=== PATIENT | male | born 1995 | race Caucasian/White ===

== ENCOUNTER 2020-01-18 14:09 | Inpatient (IN) ==
[2020-01-18] MEDS ORDERED: SODIUM CHLORIDE 0.9% 1000ML 2,000 ML IV ONE (16:00)
[2020-01-18] MEDS ORDERED: PROCHLORPERAZINE 2 ML IV ONE (16:00)
[2020-01-18] MEDS ORDERED: DiphenhydrAMINE HCL 50 MG/ML VIAL IV STA (16:00)
[2020-01-18] MEDS ORDERED: ACETAMINOPHEN 1,000 MG/100 ML VIAL IV STA (16:00)
[2020-01-18] MEDS ORDERED: FAMOTIDINE 20MG IV PUSH 20 MG/5 ML SYR IV STA (16:00)
--- NOTE | 2020-01-18 16:34 | XRay Report ---
XR chest 1V portable CLINICAL HISTORY: abd pain vomiting pain COMPARISON STUDY: No previous studies for comparison. FINDINGS: The bones soft tissues and hemidiaphragms are normal. The cardiomediastinal silhouette is n ormal. The lungs are clear. The pulmonary vasculature is normal. IMPRESSION: Negative chest. ACT 112: Negative or not required by law. The above report was generated using voice recognition software. It may contain grammatical, syntax or spelling errors. Electronically signed by: Hussein Pedersen M.D. 01/18/2020 4:33 PM
[2020-01-18 16:42] LABS: Hematocrit (blood only) 52.3 % (42-52); Hemoglobin 18.9 g/dL (14.0-18.0); Mean Corpuscular Hemoglobin 35.9 pg (25-34); Mean Corpuscular Hgb Conc 36.1 g/dL (32-36); Mean Corpuscular Volume 99.2 fL (80-100); Mean Platelet Volume 11.8 fL (7.4-10.4); Platelet Count 168 K/uL (130-400); RDW Coefficient of Variation 13.5 % (11.5-14.5); RDW Standard Deviation 48.9 fL (36.4-46.3); Red Blood Count 5.27 M/uL (4.7-6.1); White Blood Count 29.49 K/uL (4.8-10.8)
[2020-01-18 17:19] LABS: Alanine Aminotransferase 152 U/L (12-78); Albumin Globulin Ratio 0.6 (0.9-2); Albumin Level 2.9 gm/dl (3.4-5.0); Alkaline Phosphatase 205 U/L (45-117); BUN Creatinine Ratio 11.3 (10-20); Bilirubin,Total 1.1 mg/dl (0.2-1); Blood Urea Nitrogen 28 mg/dl (7-18); Carbon Dioxide 17 mmol/L (21-32); Chloride 89 mmol/L (98-107); Est GFR (African American) 40.5; Est GFR (Non-African American) 34.9; Globulin 4.5 gm/dl (2.5-4.0); Glucose 187 mg/dl (70-99); Lipase 9409 U/L (73-393); Phosphorus 3.6 mg/dl (2.5-4.9); Sodium 127 mmol/L (136-145); Total Protein 7.4 gm/dl (6.4-8.2)
[2020-01-18 17:20] LABS: Aspartate Aminotransferase 235 U/L (15-37); Bilirubin Direct 0.5 mg/dl (0-0.2); Magnesium 1.4 mg/dl (1.8-2.4); Potassium 4.1 mmol/L (3.5-5.1)
[2020-01-18 17:24] LABS: Calcium 5.6 mg/dl (8.5-10.1)
[2020-01-18] MEDS ORDERED: MULTI-VITAMIN INFUSION 10 ML, THIAMINE HCL 100 MG, FOLIC ACID 1 MG in SODIUM CHLORIDE 0... IV ONE (17:32)
[2020-01-18] MEDS ORDERED: CALCIUM GLUCONATE 10% 1,000 MG in SODIUM CHLORIDE 0.9% 50 ML IV STA (17:32)
[2020-01-18] MEDS: MAGNESIUM SULFATE / D5W 1 GM/100 ML BAG IV SCH ×2 (17:39→18:35)
[2020-01-18] MEDS ORDERED: DIAZEPAM 5 MG/ML INJ 10ML VIAL IV STA (17:53)
[2020-01-18 18:04] LABS: Basophils # (auto) 0.01 K/uL (0-0.2); Immature Granulocytes # (auto) 0.42 K/uL (0.00-0.02); Immature Granulocytes % (auto) 1.4 %; Lymphocytes # (auto) 1.52 K/uL (1.2-3.4); Lymphocytes % (auto) 5.2 %; Monocytes # (auto) 0.93 K/uL (0.11-0.59); Monocytes % (auto) 3.2 %; Neutrophils # (auto) 26.61 K/uL (1.4-6.5); Neutrophils % (auto) 90.2 %
--- NOTE | 2020-01-18 18:59 | Emergency Department Note ---
Impression & Plan Acute pancreatitis, Acute renal failure, Metabolic acidosis, Alcohol dependence, Transaminitis, Hypomagnesemia, Hypocalcemia ED Provider Note NAME: CARYN DASILVA AGE: 24 SEX: M ARRIVES VIA: Walk-In INFORMANT: Patient, ED PROVIDER(S): Shekhar Wheeler MD CHIEF COMPLAINT: Abdominal pain, nausea/vomiting. PLAN: Disposition: Admit. MEDICAL DECISION MAKING: The patient is a pleasant 24-year-old gentleman with a past medical history of alcohol dependence, withdrawal and seizures who presents emergency department with nausea and vomiting with abdominal pain for the past several days with blood-tinged emesis throughout today. The patient reports he has stopped his heavy drinking but does drink frequently and likely every day. He is evasive regarding the quantity that he drinks and whether or not he still has withdrawal symptoms but does admit to feeling restless if he does not drink for couple of days. He denies any fevers, cough, congestion, urinary symptoms. He denies any known contact with individuals diagnosed with COVID-19. On arrival the patient is uncomfortable but no acute distress, afebrile with heart rate in the 120s and vital signs otherwise stable. He appears clinically dry. There is no crepitus upon palpation of the neck or chest. He has generalized abdominal tenderness without guarding or rebound. X-ray without evidence of free air or pneumomediastinum. WBC 29K likely related to a component of acute phase reactant and dehydration given the patient's polycythemia with H/H 18.9/52.3. However blood cultures ordered. Platelets within normal limits. Chemistry does demonstrate anion gap metabolic acidosis with anion gap of 21 and bicarb of 17 as well as creatinine of 2.4, glucose 187 with sodium of 127. Magnesium is 1.4 with repletion provided. Calcium 5.6 with repletion provided. LFTs are also elevated with total bilirubin of 1.1 and direct bilirubin of 0.5 with AST and ALT elevated at 235 and 152, respectively approaching alcoholic pattern. Lipase is elevated at 9500. Patient's blood alcohol is 22. LDH 1100. CT ab pelvis was ordered and pending. Upon reevaluation patient did appear improved. Did review the findings with the patient and recommendations for admission. He did wonder if he could go home and then come back. I did stress the importance of being admitted today given his significant lab abnormalities including renal failure with severe pancreatitis. The patient's partner did arrive to the bedside and with his urging the patient was ultimately agreeable with admission. CT of abd/pelvis subsequently shows severe pancreatitis. Case was discussed with Dr. Rosado, [facility] hospitalist, who will evaluate the patient for admission. Triage Nursing notes reviewed and agree them. Prior medical records reviewed Vital Signs: reviewed and remarkable for no significant abnormalities Differential diagnosis: Appendicitis, testicular torsion, infections, diverticulitis, UTI, obstruction, mesenteric ischemia, aortic pathology, inflammatory bowel disease, renal colic, PUD, pancreatitis, biliary pathology, hernia, volvulus, constipation, as well as other pathologies. ER treatment provided: See below. Diagnostics interpreted by me: ECG: Sinus tachcyardia, 119 bpm, normal axis, no ectopy, no overt ST elevation o r depression, QTC 495 and QRS 88. Cardiac Monitoring: An order for continuous cardiac monitoring was placed and demonstrated sinus tachycardia, 122 bpm, no ectopy. Laboratory studies: See below Imaging studies: XR chest 1V portable CLINICAL HISTORY: abd pain vomiting pain COMPARISON STUDY: No previous studies for comparison. FINDINGS: The bones soft tissues and hemidiaphragms are normal. The cardiomediastinal silhouette is normal. The lungs are clear. The pulmonary vasculature is normal. IMPRESSION: Negative chest. -- ABDOMEN AND PELVIS CT WITHOUT CONTRAST CT DOSE: 329.52 mGy.cm HISTORY: Right lower quadrant pain. Nausea. Vomiting. TECHNIQUE: Multiaxial CT images of the abdomen and pelvis were performed without contrast. A dose lowering technique was utilized adhering to the principles of ALARA. COMPARISON STUDY: None. FINDINGS: The lung bases are clear. No pneumoperitoneum. No pneumatosis. No fra ctures within the visualized osseous structures. There are severe hepatic steatosis. The unenhanced spleen, gallbladder, adrenal glands, and kidneys are unremarkable. No renal or ureteral stones. No hydronephrosis. Normal bladder. Small to moderate left-sided hydrocele. No evidence for bowel obstruction. The majority of the pancreas is obscured by the extensive peripancreatic fluid/fat stranding there is fluid tracking within the bilateral anterior pararenal spaces, right greater than left. There is also fluid/fat stranding extending into the central mesentery and omentum. Therefore, these findings likely represent severe acute pancreatitis. Correlation with pancreatic enzymes is recommended. The appendix is not identified with certainty. No definite bowel wall thickening. Submucosal fat within the majority of the colon raise the possibility of a chronic inflammatory process. No evidence for an acute colitis at this time. No retroperitoneal lymphadenopathy. Normal caliber abdominal aor ta. Omentum. IMPRESSION: 1. The majority of the pancreas is obscured by the extensive peripancreatic fluid/fat stranding. There is also fluid/fat stranding extending into the central mesentery and omentum. Therefore, these findings likely represent severe acute pancreatitis. Correlation with pancreatic enzymes is recommended. 2. Severe hepatic steatosis. 3. No definite bowel wall thickening or obstruction. 4. The appendix is not identified with certainty. 5. Small to moderate left-sided hydrocele. Consultation(s): Case was discussed with Dr. Rosado, [facility] hospitalist, who will evaluate the patient for admission. HPI: The patient is a pleasant 24-year-old gentleman with a past medical history of alcohol dependence, withdrawal and seizures who presents emergency department with nausea and vomiting with abdominal pain for the past several days with blood-tinged emesis throughout today. The patient reports he has stopped his heavy drinking but does drink frequently and likely every day. He is evasive regarding the quantity that he drinks and whether or not he still has withdrawal symptoms but does admit to feeling restless if he does not drink for couple of days. He denies any fevers, cough, congestion, urinary symptoms. He denies any known contact with individuals diagnosed with COVID-19. ROS: See above HPI for pertinent positives & negatives. A total of 10 systems reviewed and were otherwise negative. PAST MEDICAL HISTORY:See Below PAST SURGICAL HISTORY:See Below FAMILY HISTORY:See Below SOCIAL HISTORY:See Below HOME MEDICATIONS:See Below ALLERGIES:See Below VITALS:See Below PHYSICAL EXAMINATION: GENERAL: Awake, alert, uncomfortable-appearing, in no distress HENT: Normocephalic, atraumatic. Oropharynx with dry mucous membranes and otherwise unremarkable. EYES: Normal conjunctiva. Sclera non-icteric. NECK: Supple. No nuchal rigidity. FROM. No JVD. No crepitus. RESPIRATORY: Clear to auscultation. CARDIAC: Tachycardic rate, normal rhythm. Extremities warm and well perfused. Pulses equal. ABDOMEN: Soft, non-distended. Generalized abdominal tenderness. No rebound or guarding. No masses. RECTAL: Deferred. MUSCULOSKELETAL: Chest examination reveals no tenderness. The back is symmetrical on inspection without obvious abnormality. There is no CVA tenderness to palpation. No joint edema. LOWER EXTREMITIES: Calves are equal size bilaterally and non-tender. No edema. No discoloration. NEURO: Normal sensorium. No sensory or motor deficits noted. SKIN: No rash or jaundice noted. ED COURSE: Critical Care: I have personally spent greater than 75 minutes of critical care time in the direct management of this patient. This includes bedside care, interpretation of diagnostic studies, and testing, discussion with consultants, patient, and family members, and other required patient management activities. This 75 minutes is in excess of all separately billable procedures. Shekhar Wheeler MD Past Med/Surg History Medical History Alcohol dependence (Acute) Social History Preferred Language: Thai It [employer] Consultant Required: No Beliefs That Will Affect Care: None Current Living Situation: Significant Other Other Information That Helps Us Care for You: No Feels Safe at Home: Yes Safety Concerns: Feels Safe At This Time Smoking Status: Current every day smoker Hx Alcohol Use: Yes Alcohol type: beer and other Hx Substance Use: Yes (alcohol) Last Used Substance: Hours (ago) Allergies Allergies Allergy/AdvReac Type Severity Reaction Status Date / Time lorazepam AdvReac Unknown Agitated Verified 01/18/20 16:29 Home Meds Home Medications Medication Instructions Recorded Confirmed ibuprofen 600 mg PO Q6H PRN 01/18/20 01/18/20 Results & Data (ED) Vital Signs Vital Signs - 24 hr 01/18/20 13:34 01/18/20 14:13 01/18/20 16:43 Temperature 36.8 C Temperature Source Oral Pulse Rate 118 H 96 H 115 H Pulse Rate [Right Finger] Pulse Rate from SpO2 Sensor 117 H Respiratory Rate 27 H 17 24 Blood Pressure 142/45 H 120/64 Blood Pressure [Right Arm] Blood Pressure Mean 73 82 Blood Pressure Mean [Right Arm] Pulse Oximetry 100 97 Oxygen Delivery Method Room Air Sepsis Recent Fever Within 48 Hours No Sepsis New/Unexplained Change in Mental Status No Sepsis Action Taken by Nursing No Action Required 01/18/20 16:44 01/18/20 16:45 01/18/20 17:00 Temperature Temperature Source Pulse Rate 115 H 109 H 112 H Pulse Rate [Right Finger] Pulse Rate from SpO2 Sensor 115 H 109 H 111 H Respiratory Rate 26 H 28 H 29 H Blood Pressure 138/83 126/89 Blood Pressure [Right Arm] Blood Pressure Mean 99 110 Blood Pressure Mean [Right Arm] Pulse Oximetry 100 97 99 Oxygen Delivery Method Room Air Sepsis Recent Fever Within 48 Hours Sepsis New/Unexplained Change in Mental Status Sepsis Action Taken by Nursing 01/18/20 17:30 01/18/20 17:38 01/18/20 18:00 Temperature Temperature Source Pulse Rate 118 H 116 H 124 H Pulse Rate [Right Finger] Pulse Rate from SpO2 Sensor 117 H Respiratory Rate 24 18 31 H Blood Pressure 147/78 H 135/82 Blood Pressure [Right Arm] Blood Pressure Mean 105 101 Blood Pressure Mean [Right Arm] Pulse Oximetry 100 Oxygen Delivery Method Sepsis Recent Fever Within 48 Hours Sepsis New/Unexplained Change in Mental Status Sepsis Action Taken by Nursing 01/18/20 18:30 01/18/20 18:35 01/18/20 19:25 Temperature Temperature Source Pulse Rate 115 H 122 H Pulse Rate [Right Finger] 117 H Pulse Rate from SpO2 Sensor Respiratory Rate 21 19 19 Blood Pressure 131/78 Blood Pressure [Right Arm] 126/66 Blood Pressure Mean 94 Blood Pressure Mean [Right Arm] 86 Pulse Oximetry 100 Oxygen Delivery Method Room Air Sepsis Recent Fever Within 48 Hours Sepsis New/Unexplained Change in Mental Status Sepsis Action Taken by Nursing 01/18/20 21:08 Temperature Temperature Source Pulse Rate Pulse Rate [Right Finger] 112 H Pulse Rate from SpO2 Sensor Respiratory Rate 19 Blood Pressure Blood Pressure [Right Arm] Blood Pressure Mean Blood Pressure Mean [Right Arm] Pulse Oximetry 98 Oxygen Delivery Method Sepsis Recent Fever Within 48 Hours Sepsis New/Unexplained Change in Mental Status Sepsis Action Taken by Nursing Laboratory Data Attestation: I reviewed the patient's lab results. Result diagrams: 01/19/20 00:50 01/18/20 16:13 Lab Results 01/18/20 01/18/20 01/18/20 Range/Units 16:13 16:13 16:13 WBC 29.49 H (4.8-10.8) K/uL RBC 5.27 (4.7-6.1) M/uL Hgb 18.9 H (14.0-18.0) g/dL Hct 52.3 H (42-52) % MCV 99.2 (80-100) fL MCH 35.9 H (25-34) pg MCHC 36.1 H (32-36) g/dL RDW Std Deviation 48.9 H (36.4-46.3) fL RDW Coeff of Paty 13.5 (11.5-14.5) % Plt Count 168 (130-400) K/uL MPV 11.8 H (7.4-10.4) fL Immature Gran % (Auto) 1.4 % Neut % (Auto) 90.2 % Lymph % (Auto) 5.2 % Bee % (Auto) 3.2 % Eos % (Auto) 0.0 % Baso % (Auto) 0.0 % Neut # (Auto) 26.61 H (1.4-6.5) K/uL Lymph # (Auto) 1.52 (1.2-3.4) K/uL Bee # (Auto) 0.93 H (0.11-0.59) K/uL Eos # (Auto) 0.00 (0-0.5) K/uL Baso # (Auto) 0.01 (0-0.2) K/uL Immature Gran # (Auto) 0.42 H (0.00-0.02) K/uL Sodium 127 L (136-145) mmol/L Potassium 4.1 (3.5-5.1) mmol/L Chloride 89 L (98-107) mmol/L Carbon Dioxide 17 L (21-32) mmol/L Anion Gap 21.0 H (3-11) BUN 28 H (7-18) mg/dl Creatinine 2.47 H (0.6-1.4) mg/dl Est Cr Clr Drug Dosing Not Reportable Est GFR ( Amer) 40.5 Est GFR (Non-Af Amer) 34.9 BUN/Creatinine Ratio 11.3 (10-20) Glucose 187 H (70-99) mg/dl Lactate Calcium 5.6 L* (8.5-10.1) mg/dl Phosphorus 3.6 (2.5-4.9) mg/dl Magnesium 1.4 L (1.8-2.4) mg/dl Total Bilirubin 1.1 H (0.2-1) mg/dl Direct Bilirubin 0.5 H (0-0.2) mg/dl AST 235 H (15-37) U/L ALT 152 H (12-78) U/L Alkaline Phosphatase 205 H (45-117) U/L Lactate Dehydrogenase (87-241) U/L Total Protein 7.4 (6.4-8.2) gm/dl Albumin 2.9 L (3.4-5.0) gm/dl Globulin 4.5 H (2.5-4.0) gm/dl Albumin/Globulin Ratio 0.6 L (0.9-2) Lipase 9409 H (73-393) U/L Beta-Hydroxybutyric Acd 3.00 H (0.2-2.81) mg/dl Ethyl Alcohol mg/dL 22.2 H (0-3) mg/dl 01/18/20 01/18/20 Range/Units 18:18 20:30 WBC (4.8-10.8) K/uL RBC (4.7-6.1) M/uL Hgb (14.0-18.0) g/dL Hct (42-52) % MCV (80-100) fL MCH (25-34) pg MCHC (32-36) g/dL RDW Std Deviation (36.4-46.3) fL RDW Coeff of Paty (11.5-14.5) % Plt Count (130-400) K/uL MPV (7.4-10.4) fL Immature Gran % (Auto) % Neut % (Auto) % Lymph % (Auto) % Bee % (Auto) % Eos % (Auto) % Baso % (Auto) % Neut # (Auto) (1.4-6.5) K/uL Lymph # (Auto) (1.2-3.4) K/uL Bee # (Auto) (0.11-0.59) K/uL Eos # (Auto) (0-0.5) K/uL Baso # (Auto) (0-0.2) K/uL Immature Gran # (Auto) (0.00-0.02) K/uL Sodium (136-145) mmol/L Potassium (3.5-5.1) mmol/L Chloride (98-107) mmol/L Carbon Dioxide (21-32) mmol/L Anion Gap (3-11) BUN (7-18) mg/dl Creatinine (0.6-1.4) mg/dl Est Cr Clr Drug Dosing Est GFR ( Amer) Est GFR (Non-Af Amer) BUN/Creatinine Ratio (10-20) Glucose (70-99) mg/dl Lactate Cancelled Calcium (8.5-10.1) mg/dl Phosphorus (2.5-4.9) mg/dl Magnesium (1.8-2.4) mg/dl Total Bilirubin (0.2-1) mg/dl Direct Bilirubin (0-0.2) mg/dl AST (15-37) U/L ALT (12-78) U/L Alkaline Phosphatase (45-117) U/L Lactate Dehydrogenase 1173 H (87-241) U/L Total Protein (6.4-8.2) gm/dl Albumin (3.4-5.0) gm/dl Globulin (2.5-4.0) gm/dl Albumin/Globulin Ratio (0.9-2) Lipase (73-393) U/L Beta-Hydroxybutyric Acd (0.2-2.81) mg/dl Ethyl Alcohol mg/dL (0-3) mg/dl Administered Medications Acetaminophen (Tylenol) 650 mg PO Q4H PRN PRN Reason: pain/fever Stop: 02/18/20 00:11 Last Admin: 01/19/20 01:17 Dose: 650 mg Documented by: [id number] Diazepam (Valium) 2 mg IV Q6H PRN PRN Reason: Agitation Stop: 02/18/20 00:11 Last Admin: 01/19/20 01:27 Dose: 2 mg Documented by: [id number] Lactated Ringer's (Lr) 1,000 mls @ 250 mls/hr IV .Q4H SKYLER Stop: 01/19/20 16:11 Last Admin: 01/19/20 00:42 Dose: 250 mls/hr Documented by: [id number] Pantoprazole Sodium 40 mg/ (Dextrose) 100 mls @ 20 mls/hr IV Q5H SKYLER Stop: 02/18/20 00:29 Last Admin: 01/19/20 01:18 Dose: 8 mg/hr, 20 mls/hr Documented by: [id number] Discontinued Medications Diazepam (Valium) 2 mg IV NOW STA Stop: 01/18/20 17:54 Last Admin: 01/18/20 19:54 Dose: 2 mg Documented by: [id number] Diphenhydramine HCl (Benadryl) 25 mg IV NOW STA Stop: 01/18/20 16:01 Last Admin: 01/18/20 16:23 Dose: 25 mg Documented by: [id number] Sodium Chloride (Nss 1000ml) 2,000 mls @ 999 mls/hr IV .Q2H1M ONE Stop: 01/18/20 18:00 Last Infusion: 01/18/20 18:35 Dose: 0 mls/hr Documented by: [id number] Admin: 01/18/20 16:23 Dose: 999 mls/hr Documented by: [id number] Famotidine (Pepcid 20mg Iv Push) 20 mg in 5 mls @ 2.5 mls/min IV NOW STA Stop: 01/18/20 16:01 Last Admin: 01/18/20 16:23 Dose: 2.5 mls/min Documented by: [id number] Prochlorperazine (Compazine) 2 mls @ 1 mls/min IV ONE ONE Stop: 01/18/20 16:01 Last Admin: 01/18/20 16:25 Dose: 1 mls/min Documented by: [id number] Acetaminophen (Ofirmev) 1,000 mg in 100 mls @ 400 mls/hr IV NOW STA Stop: 01/18/20 16:14 Last Infusion: 01/18/20 16:45 Dose: 0 mls/hr Documented by: [id number] Admin: 01/18/20 16:24 Dose: 400 mls/hr Documented by: [id number] Multivitamins 10 ml/ Thiamine HCl 100 mg/ Folic Acid 1 mg/Sodium Chloride 1,011.2 mls @ 1,011.2 mls/hr IV .Q1H ONE Stop: 01/18/20 18:31 Last Infusion: 01/18/20 20:43 Dose: 0 mls/hr Documented by: [id number] Admin: 01/18/20 19:47 Dose: 1,011.2 mls/hr Documented by: [id number] Calcium Gluconate 1,000 mg/ (Sodium Chloride) 60 mls @ 240 mls/hr IV NOW STA Stop: 01/18/20 17:46 Last Infusion: 01/18/20 19:48 Dose: 0 mls/hr Documented by: [id number] Admin: 01/18/20 19:26 Dose: 240 mls/hr Documented by: [id number] Magnesium Sulfate/Dextrose (Magnesium Sulfate / D5w) 1 gm in 100 mls @ 200 mls/hr IV Q30M SKYLER Stop: 01/18/20 18:32 Last Infusion: 01/18/20 19:17 Dose: 0 mls/hr Documented by: [id number] Admin: 01/18/20 18:35 Dose: 200 mls/hr Documented by: [id number] Infusion: 01/18/20 18:09 Dose: 200 mls/hr Documented by: [id number] Admin: 01/18/20 17:39 Dose: 200 mls/hr Documented by: [id number] Pantoprazole Sodium 80 mg/ (Dextrose) 120 mls @ 400 mls/hr IV NOW ONE Stop: 01/19/20 00:29 Last Infusion: 01/19/20 01:24 Dose: 0 mls/hr Documented by: [id number] Admin: 01/19/20 00:58 Dose: 400 mls/hr Documented by: [id number] Blood Pressure Blood Pressure Findings: Normal blood pressure Discharge Plan Visit Data *Final* Discharge Date/Time: 01/18/20 22:44 Chief Complaint: Vomiting Stated Complaint: VOMITING, ABD/BACK PAIN ED Provider: Shekhar Wheeler Discharge Problem: Acute pancreatitis, Acute renal failure, Metabolic acidosis, Alcohol dependence, Transaminitis, Hypomagnesemia, Hypocalcemia Patient Disposition: Admitted As Inpatient Discharge Instructions Interventions: ED Discharge Assessment Last Done: 01/18/20 22:44 Discharge Problem: Acute pancreatitis Qualifiers: Pancreatitis type: alcohol induced Acute pancreatitis complication: unspecified Qualified Code(s): K85.20 - Alcohol induced acute pancreatitis without necrosis or infection Acute renal failure Qualifiers: Acute renal failure type: unspecified Qualified Code(s): N17.9 - Acute kidney failure, unspecified Alcohol dependence Qualifiers: Substance use status: unspecified alcohol-induced disorder Qualified Code(s): F10.29 - Alcohol dependence with unspecified alcohol-induced disorder
--- NOTE | 2020-01-18 19:01 | CT Scan Report ---
ABDOMEN AND PELVIS CT WITHOUT CONTRAST CT DOSE: 329.52 mGy.cm HISTORY: Right lower quadrant pain. Nausea. Vomiting. TECHNIQUE: Multiaxial CT images of the abdomen and pelvis were performed without contrast. A dose lo wering technique was utilized adhering to the principles of ALARA. COMPARISON STUDY: None. FINDINGS: The lung bases are clear. No pneumoperitoneum. No pneumatosis. No fractures within the visu alized osseous structures. There are severe hepatic steatosis. The unenhanced spleen, gallbladder, ad renal glands, and kidneys are unremarkable. No renal or ureteral stones. No hydronephrosis. Normal bl adder. Small to moderate left-sided hydrocele. No evidence for bowel obstruction. The majority of the pancreas is obscured by the extensive peripancreatic fluid/fat stranding there is fluid tracking wit hin the bilateral anterior pararenal spaces, right greater than left. There is also fluid/fat strandi ng extending into the central mesentery and omentum. Therefore, these findings likely represent sever e acute pancreatitis. Correlation with pancreatic enzymes is recommended. The appendix is not identif ied with certainty. No definite bowel wall thickening. Submucosal fat within the majority of the colo n raise the possibility of a chronic inflammatory process. No evidence for an acute colitis at this t [place]. No retroperitoneal lymphadenopathy. Normal caliber abdominal aorta. Omentum. IMPRESSION: 1. The majority of the pancreas is obscured by the extensive peripancreatic fluid/fat stranding. Ther e is also fluid/fat stranding extending into the central mesentery and omentum. Therefore, these find ings likely represent severe acute pancreatitis. Correlation with pancreatic enzymes is recommended. 2. Severe hepatic steatosis. 3. No definite bowel wall thickening or obstruction. 4. The appendix is not identified with certainty. 5. Small to moderate left-sided hydrocele. ACT 112: Negative or not required by law. Electronically signed by: Shin Donohue M.D. 01/18/2020 7:00 PM
[2020-01-19] MEDS ORDERED: ONDANSETRON INJ 2 MG/ML 2 ML VIAL IV PRN ×2 (00:12→10:12)
[2020-01-19] MEDS ORDERED: PANTOprazole 80 MG in DEXTROSE 5% 100 ML IV ONE (00:12)
[2020-01-19] MEDS ORDERED: ALUMINUM/MAGNESIUM SUSP 30 ML UDC PO PRN (00:12)
[2020-01-19] MEDS ORDERED: PANTOPRAZOLE BOLUS/DRIP 1 EA IV STA (00:12)
[2020-01-19] MEDS ORDERED: LORazepam 1 MG TAB PO PRN (00:12)
[2020-01-19] MEDS ORDERED: MAGNESIUM HYDROXIDE SUSP 30 ML UDC PO PRN (00:12)
[2020-01-19] MEDS ORDERED: POLYETHYLENE (MIRALAX) 17 GM PACK PO PRN (00:12)
--- NOTE | 2020-01-19 00:21 | History & Physical Report ---
Date of Service January 18, 2020 Assessment & Plan Admission and Anticipated Discharge Date Admission Date: 24 yo m w/ pMHx. withdrawal seizure and ETOH dependance presenting with symptoms of back pain and hematemesis Pancreatitis, w/ [facility] of 2 points for elevated WBC and LDH (1% predicted mortality, severe pancreatitis is unlikely) - follow up w/ [facility] at 48 hours, and continue to evaluate for secondary complications of pancreatitis. - CT a/p: w/ likely severe acute pancreatitis - lipase: 9409, LDH>1100, WBC 29.49 glucose 187 - no signs on PE of PNA (CXR - chest), no urinary symptoms - did not start antibiotics at this time given lack of source of any type of infection, if patient becomes febrile reevaluate - follow up blood cultures - IVF LR 250 ml/hr. - pain well controlled, Tylenol available - continue to evaluate and treat Hematemesis, could represent Millicent Talavera from vomitus, vs. gastric ulcer given ETOH and NSAID use - GI consulted - NPO - started protonix drip - zofran prn - f/u AM CBC Elevated liver enzymes likely secondary to pancreatitis, no IVDU - AST 235 ALT 152 consistent with alcoholic pattern, bili elevated - AM LFT to re-evaluate, could get RUQ ultrasound to further evaluate gallbladder although no signs of cholecystitis on CT Hypocalcemia, likely related to profuse vomitus - repleted with ca. gluconate in the ED - recheck in the AM and continue to replete STEPHAN, likely prerenal although BUN/Cr. less than 20 - Cr. 2.47 - IVF as above - continue to monitor with AM BMP Tachycardia, likely from dehydration and pain - continue to rehydrate as above - continue to evaluate pain and treat ETOH use - ETOH level 22.2 - CIWA protocol, Ativan available small left sided hydrocele - outpatient follow up Anxiety - Valium prn available DVT: SCD's given bleeding Code: full dispo: med-surg tele diet: NPO for now History of Present Illness Chief Complaint: vomiting blood and back pain Primary Care Provider: NO PCP Meaghan Everton is a 24-year-old gentleman who is coming in after he had back pain for the last 1 week, developed stomach cramps yesterday and today he started vomiting 10-11 times over the day. The vomit has been coffee ground in appearance. He has a history of alcohol dependence with a prior hospital admission for a withdrawal seizure in 2019. He is here with his stephanie Wallace ([phone]). He explains that he was drinking more a year and a half ago but more recently he has been drinking approximately 15 drinks per week. He drinks "Truly" hard seltzer. He will monthly have up to 6 drinks at one time. He gets restless if he does not drink for up to 2 days. At home he has been using Ibuprofen 3 pills 3 times a day for back pain. He has no family history of pancreatitis. He has an allergy to Ativan, his fiance explained that he was agitated after he was given this for his seizure in the past. 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 Beliefs That Will Affect Care: None Current Living Situation: Significant Other Other Information That Helps Us Care for You: No Feels Safe at Home: Yes Safety Concerns: Feels Safe At This Time Smoking Status: Current every day smoker Hx Alcohol Use: Yes Alcohol type: beer and other Hx Substance Use: Yes (alcohol) Last Used Substance: Hours (ago) Review of Systems Review of Systems: Constitutional: denies night sweats, change in weight admits chills Head: denies trauma, LOC, confusion, headaches admits lightheadedness and change in vision Neurologic: denies syncope Cardiac: denies chest pain, palpitations, and leg edema Pulm: denies cough, shortness of breath GI: denies indigestion, diarrhea, and bloody stool : denies dysuria Physical Exam Constitutional: WD/WN, vitals as above - anxious Eyes: PERRL, conjunctivae normal, anicteric sclerae ENMT: external ear and nose normal, oropharynx normal Neck: normal visual inspection Respiratory: normal respiratory effort, lungs clear to auscultation Cardiovascular: RRR, no murmur, no edema Gastrointestinal (Abdomen): Percussion/Palpation: abdomen soft; abdomen not rigid - diffuse abdominal pain, worse epigastric and myra umbilical, normal bowel sounds Skin: no rashes, warm and dry Psychiatric: A+Ox3, euthymic affect Results & Data Results & Data ([facility]) Vital Signs (Past 12 Hours) Vital Signs Temp Pulse Pulse Resp BP BP Pulse Ox 01/18/20 22:23 126 H 19 127/89 97 01/18/20 21:08 112 H 19 98 01/18/20 19:25 117 H 19 126/66 100 01/18/20 18:35 122 H 19 131/78 01/18/20 18:30 115 H 21 01/18/20 18:00 124 H 31 H 135/82 01/18/20 17:38 116 H 18 147/78 H 100 01/18/20 17:30 118 H 24 01/18/20 17:00 112 H 29 H 126/89 99 01/18/20 16:45 109 H 28 H 97 01/18/20 16:44 115 H 26 H 138/83 100 01/18/20 16:43 115 H 24 01/18/20 14:13 36.8 C 96 H 17 120/64 97 01/18/20 13:34 118 H 27 H 142/45 H 100 CBC Results Results Complete Blood Count Results: RBC 4.38 M/uL (4.7-6.1) L 01/19/20 WBC 23.25 K/uL (4.8-10.8) H 01/19/20 Hgb 15.0 g/dL (14.0-18.0) 01/19/20 Hct 41.9 % (42-52) L 01/19/20 Plt Count 153 K/uL (130-400) 01/19/20 Chemistry Results CMP Results: Na 127 mmol/L (136-145) L 01/18/20 K 4.1 mmol/L (3.5-5.1) 01/18/20 Cl 89 mmol/L (98-107) L 01/18/20 CO2 17 mmol/L (21-32) L 01/18/20 Anion Gap 21.0 (3-11) H 01/18/20 BUN 28 mg/dl (7-18) H 01/18/20 Creatinine 2.47 mg/dl (0.6-1.4) H 01/18/20 BUN/Creatinine Ratio 11.3 (10-20) 01/18/20 Glu 187 mg/dl (70-99) H 01/18/20 Ca 5.6 mg/dl (8.5-10.1) L* 01/18/20 Phosphorus Level 3.6 mg/dl (2.5-4.9) 01/18/20 Total Bilirubin 1.1 mg/dl (0.2-1) H 01/18/20 Direct Bilirubin 0.5 mg/dl (0-0.2) H 01/18/20 AST 235 U/L (15-37) H 01/18/20 ALT 152 U/L (12-78) H 01/18/20 Alkaline Phosphatase 205 U/L (45-117) H 01/18/20 TP 7.4 gm/dl (6.4-8.2) 01/18/20 Albumin 2.9 gm/dl (3.4-5.0) L 01/18/20 Globulin 4.5 gm/dl (2.5-4.0) H 01/18/20 Albumin/Globulin Ratio 0.6 (0.9-2) L 01/18/20 Lactate Dehydrogenase 1173 U/L (87-241) H 01/18/20 Chemistry (BMP) Results BMP Results: Sodium 127 mmol/L (136-145) L 01/18/20 Potassium 4.1 mmol/L (3.5-5.1) 01/18/20 Chloride 89 mmol/L (98-107) L 01/18/20 BUN 28 mg/dl (7-18) H 01/18/20 Creatinine 2.47 mg/dl (0.6-1.4) H 01/18/20 Glucose 187 mg/dl (70-99) H 01/18/20 Code Status & VTE Plan VTE Prophylaxis Plan VTE Prophylaxis will be ordered: Yes Supervising Physician Co-Signing Physician Notes Patient seen and examined, chart reviewed, case discussed with Dr. Lazar and I agree with his assessment and plan as documented above. Briefly, patient is a 24yo C male with h/o EtOH abuse presenting with acute pancreatitis, back pain and hematemesis. On exam he is quite anxious but non-toxic in appearance, afebrile, sinus tachycardic Skin - no jaundice or rash HEENT - Dry mm, neck supple, PERRL Heart - +S1/S2, regular, tachycardic, no m/r/g Lungs - CTA Abd - +epigastric tenderness with voluntary guarding, no rebound tenderness Ext - No edema Labs and images reviewed Assessmetn/Plan - 24yo C male with pancreatitis, most likely secondary to EtOH use, also reports some possible coffee grouind emesis -Admit to medical floor with telemetry -Protonix gtt, GI consultation appreciated -NPO, bowel rest, managemetn of pain and nausea -Patient should be counselled to avoid future intake of EtoH -Repeat LFTs, if worsening or more obstructivei n appearance would obtain imaging, ?MRCP -Remainder of plan as above Resident Activity Tracking Resident Involvement: Resident Care Provided Care Provided: Adult Hospital Medicine
[2020-01-19] MEDS: LACTATED RINGER'S 1,000 ML IV SCH ×6 (00:42→20:52)
[2020-01-19 01:05] LABS: Hematocrit (blood only) 41.9 % (42-52); Mean Corpuscular Hemoglobin 34.2 pg (25-34); Mean Corpuscular Hgb Conc 35.8 g/dL (32-36); Mean Corpuscular Volume 95.7 fL (80-100); Mean Platelet Volume 12.4 fL (7.4-10.4); Platelet Count 153 K/uL (130-400); RDW Coefficient of Variation 13.7 % (11.5-14.5); RDW Standard Deviation 48.2 fL (36.4-46.3); Red Blood Count 4.38 M/uL (4.7-6.1); White Blood Count 23.25 K/uL (4.8-10.8)
[2020-01-19] MEDS: ACETAMINOPHEN 325 MG TAB PO PRN ×2 (01:17→19:26)
[2020-01-19] MEDS: PANTOprazole 40 MG in DEXTROSE 5% 100 ML IV SCH ×3 (01:18→12:21)
[2020-01-19] MEDS: DIAZEPAM 5 MG/ML INJ 10ML VIAL IV PRN ×2 (01:27→08:19)
[2020-01-19 01:28] LABS: Basophils # (auto) 0.01 K/uL (0-0.2); Immature Granulocytes % (auto) 0.9 %; Lymphocytes # (auto) 0.78 K/uL (1.2-3.4); Lymphocytes % (auto) 3.4 %; Monocytes # (auto) 0.71 K/uL (0.11-0.59); Monocytes % (auto) 3.1 %; Neutrophils # (auto) 21.55 K/uL (1.4-6.5); Neutrophils % (auto) 92.6 %
[2020-01-19 03:21] LABS: Appearance Urine Clear (Clear); Bacteria Urine Automated Negative (Negative); Blood Urine Negative (Negative); Color Urine Orange; Glucose Urine UA Negative (Negative); Ketones Urine Negative (Negative); Leukocyte Esterase Urine Trace (Negative); Nitrite Urine Positive (Negative); Protein Urine 1+ (Negative); RBC Urine Automated 0-4 /hpf (0-4); Specific Gravity Urine 1.033 (1.000-1.030); Urobilinogen Urine Negative (Negative); pH Urine 5.5 (4.5-7.5)
[2020-01-19 03:24] LABS: Bilirubin Urine Negative (Negative); Ictotest Urine Negative (Negative)
--- NOTE | 2020-01-19 04:49 | Billing Data ---
Date of Service January 18, 2020 Coding Level of Care Code 61139 Initial Inpt Care Lvl 3
[2020-01-19] MEDS ORDERED: HYDROmorphone INJ 0.5 MG/0.5 ML SYR IV STA (04:53)
[2020-01-19 06:46] LABS: Alanine Aminotransferase 98 U/L (12-78); Albumin Level 2.1 gm/dl (3.4-5.0); Alkaline Phosphatase 136 U/L (45-117); BUN Creatinine Ratio 19.9 (10-20); Blood Urea Nitrogen 22 mg/dl (7-18); Carbon Dioxide 21 mmol/L (21-32); Glucose 157 mg/dl (70-99); Sodium 130 mmol/L (136-145); Total Protein 5.4 gm/dl (6.4-8.2)
[2020-01-19 06:47] LABS: Chloride 99 mmol/L (98-107); Potassium 4.3 mmol/L (3.5-5.1)
[2020-01-19 06:48] LABS: Calcium < 5.0 mg/dl (8.5-10.1); Creatinine Clr Calc Pharmacy 91.8 ml/min; Est GFR (African American) 106.4; Est GFR (Non-African American) 91.8
[2020-01-19 06:49] LABS: Aspartate Aminotransferase 167 U/L (15-37); Bilirubin,Total 1.3 mg/dl (0.2-1); Cholesterol 357 mg/dl (0-200)
[2020-01-19] MEDS ORDERED: CALCIUM GLUCONATE 10% 1,000 MG in SODIUM CHLORIDE 0.9% 50 ML IV ONE (07:30)
--- NOTE | 2020-01-19 09:36 | History & Physical Report ---
Date of Service January 19, 2020 Assessment & Plan (1) Acute pancreatitis: Patient presenting with signs and symptoms of acute pancreatitis most likely related to ongoing alcohol abuse. At this time the best course of action for this would be supportive care with continued IV hydration and management of pain. He is likely to develop an ileus given the severity of his presentation. (2) Transaminitis: Patient with elevated liver enzymes most likely related to his alcohol abuse. At the present time I would continue with conservative therapy and recommend daily labs for continued follow-up. Should the patient develop elevation of his INR or bilirubin we would reevaluate his discriminant function determine if he would benefit from empiric use of steroids or toxic Radha (3) Hematemesis: Patient presenting with question of coffee-ground emesis or hematemesis. We are certainly happy to provide endoscopic evaluation today to ensure that he does not have an actively bleeding lesion. History of Present Illness Chief Complaint: Abdominal pain/hematemesis Primary Care Provider: NO PCP Consult requeted by Dr. Rosado The patient is a 24-year-old male who presented to the emergency room with evaluation of back pain. The symptoms have been ongoing for approximately 1 week after which he began to develop abdominal cramping and emesis. The patient reports having 10-11 emesis episodes over a 24-hour period. During the last emesis he had passage of some blood which was found in the toilet water. He denies having any melena this morning no recurrence of emesis since admission. Unfortunately the patient is an alcoholic has been previously admitted to the hospital for problems related to substance abuse and withdrawal. He presently drinks least 15 drinks per week if not more of hard seltzer. Does report that he has periods where he will drink 6-8 drinks in 1 setting. The patient also reports that he has been using nonsteroidals as an outpatient up to 600 mg 3-4 times a day for back discomfort. This morning the patient notes that he does feel bloated. 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 Beliefs That Will Affect Care: None Current Living Situation: Significant Other Other Information That Helps Us Care for You: No Feels Safe at Home: Yes Safety Concerns: Feels Safe At This Time Smoking Status: Current every day smoker Hx Alcohol Use: Yes Alcohol type: beer and other Hx Substance Use: Yes (alcohol) Last Used Substance: Hours (ago) Review of Systems + malaise; no fever, no sweats and no weight loss no diplopia no ear trauma no change in sputum and no hemoptysis no chest pain with activity and no dyspnea at rest + abdominal pain and + nausea; no bloating no urinary frequency no radicular pain no falls no hopelessness and no suicidal ideation no coagulopathy Physical Exam Constitutional: well nourished, + well hydrated and + thin; no acute distress Eyes: PERRL, conjunctivae normal, anicteric sclerae Neck: trachea midline, no thyromegaly Respiratory: normal respiratory effort; no respiratory distress and no labored breathing Cardiovascular: Rate/Rhythm: regular rhythm Gastrointestinal (Abdomen): Inspection/Auscultation: + abdomen distended Percussion/Palpation: + abdomen tender; no guarding Skin: no rashes, warm and dry normal turgor Neurologic: not confused and not obtunded Speech / Cognition: normal speech Motor/Sensory: no tremor Cranial Nerves: sense of smell intact Results & Data Vital Signs (Past 12 Hours) Vital Signs Temp Pulse Pulse Resp BP Pulse Ox 01/19/20 07:31 36.7 C 124 H 20 107/66 97 01/19/20 07:21 104 H 01/19/20 03:25 37 C 110 H 18 125/87 96 01/19/20 00:19 37.2 C 124 H 24 123/73 96 01/19/20 00:06 124 H 01/18/20 22:23 126 H 19 127/89 97 Laboratory Results Laboratory Results - last 24 hr 01/18/20 01/18/20 01/18/20 16:13 16:13 16:13 WBC 29.49 H RBC 5.27 Hgb 18.9 H Hct 52.3 H MCV 99.2 MCH 35.9 H MCHC 36.1 H RDW Std Deviation 48.9 H RDW Coeff of Paty 13.5 Plt Count 168 MPV 11.8 H Immature Gran % (Auto) 1.4 Neut % (Auto) 90.2 Lymph % (Auto) 5.2 [place] % (Auto) 3.2 Eos % (Auto) 0.0 Baso % (Auto) 0.0 Neut # (Auto) 26.61 H Lymph # (Auto) 1.52 [place] # (Auto) 0.93 H Eos # (Auto) 0.00 Baso # (Auto) 0.01 Immature Gran # (Auto) 0.42 H Sodium 127 L Potassium 4.1 Chloride 89 L Carbon Dioxide 17 L Anion Gap 21.0 H BUN 28 H Creatinine 2.47 H Est Cr Clr Drug Dosing Not Reportable Est GFR ( Amer) 40.5 Est GFR (Non-Af Amer) 34.9 BUN/Creatinine Ratio 11.3 Glucose 187 H Lactate Calcium 5.6 L* Phosphorus 3.6 Magnesium 1.4 L Total Bilirubin 1.1 H Direct Bilirubin 0.5 H AST 235 H ALT 152 H Alkaline Phosphatase 205 H Lactate Dehydrogenase Total Protein 7.4 Albumin 2.9 L Globulin 4.5 H Albumin/Globulin Ratio 0.6 L Cholesterol Lipase 9409 H Folate Beta-Hydroxybutyric Acd 3.00 H Specimen Hemolysis Urine Color Urine Appearance Urine pH Ur Specific [place] Urine Protein Urine Glucose (UA) Urine Ketones Urine Blood Urine Nitrite Urine Bilirubin Urine Urobilinogen Ur Leukocyte Esterase Urine WBC (Auto) Urine RBC (Auto) U Hyaline Cast (Auto) U Epithel Cells (Auto) Urine Bacteria (Auto) Ethyl Alcohol mg/dL 22.2 H COVID-19 PCR 01/18/20 01/18/20 01/19/20 18:18 20:30 00:50 WBC RBC Hgb Hct MCV MCH MCHC RDW Std Deviation RDW Coeff of Paty Plt Count MPV Immature Gran % (Auto) Neut % (Auto) Lymph % (Auto) [place] % (Auto) Eos % (Auto) Baso % (Auto) Neut # (Auto) Lymph # (Auto) [place] # (Auto) Eos # (Auto) Baso # (Auto) Immature Gran # (Auto) Sodium Potassium Chloride Carbon Dioxide Anion Gap BUN Creatinine Est Cr Clr Drug Dosing Est GFR ( Amer) Est GFR (Non-Af Amer) BUN/Creatinine Ratio Glucose Lactate Cancelled Calcium Phosphorus Magnesium Total Bilirubin Direct Bilirubin AST ALT Alkaline Phosphatase Lactate Dehydrogenase 1173 H Total Protein Albumin Globulin Albumin/Globulin Ratio Cholesterol Lipase Folate Beta-Hydroxybutyric Acd Specimen Hemolysis Urine Color Urine Appearance Urine pH Ur Specific [place] Urine Protein Urine Glucose (UA) Urine Ketones Urine Blood Urine Nitrite Urine Bilirubin Urine Urobilinogen Ur Leukocyte Esterase Urine WBC (Auto) Urine RBC (Auto) U Hyaline Cast (Auto) U Epithel Cells (Auto) Urine Bacteria (Auto) Ethyl Alcohol mg/dL COVID-19 PCR 01/19/20 01/19/20 01/19/20 00:50 00:50 02:55 WBC 23.25 H RBC 4.38 L Hgb 15.0 D Hct 41.9 L MCV 95.7 MCH 34.2 H MCHC 35.8 RDW Std Deviation 48.2 H RDW Coeff of Paty 13.7 Plt Count 153 MPV 12.4 H Immature Gran % (Auto) 0.9 Neut % (Auto) 92.6 Lymph % (Auto) 3.4 [place] % (Auto) 3.1 Eos % (Auto) 0.0 Baso % (Auto) 0.0 Neut # (Auto) 21.55 H Lymph # (Auto) 0.78 L [place] # (Auto) 0.71 H Eos # (Auto) 0.00 Baso # (Auto) 0.01 Immature Gran # (Auto) 0.20 H Sodium Cancelled Potassium Cancelled Chloride Cancelled Carbon Dioxide Cancelled Anion Gap Cancelled BUN Cancelled Creatinine Cancelled Est Cr Clr Drug Dosing Cancelled Est GFR ( Amer) Cancelled Est GFR (Non-Af Amer) Cancelled BUN/Creatinine Ratio Cancelled Glucose Cancelled Lactate Calcium Cancelled Phosphorus Magnesium Total Bilirubin Cancelled Direct Bilirubin Cancelled AST Cancelled ALT Cancelled Alkaline Phosphatase Cancelled Lactate Dehydrogenase Total Protein Cancelled Albumin Cancelled Globulin Albumin/Globulin Ratio Cholesterol Cancelled Lipase Folate Cancelled Beta-Hydroxybutyric Acd Specimen Hemolysis Urine Color Urine Appearance Urine pH Ur Specific [place] Urine Protein Urine Glucose (UA) Urine Ketones Urine Blood Urine Nitrite Urine Bilirubin Urine Urobilinogen Ur Leukocyte Esterase Urine WBC (Auto) Urine RBC (Auto) U Hyaline Cast (Auto) U Epithel Cells (Auto) Urine Bacteria (Auto) Ethyl Alcohol mg/dL COVID-19 PCR 01/19/20 01/19/20 01/19/20 02:55 03:05 08:05 WBC RBC Hgb Hct MCV MCH MCHC RDW Std Deviation RDW Coeff of Paty Plt Count MPV Immature Gran % (Auto) Neut % (Auto) Lymph % (Auto) [place] % (Auto) Eos % (Auto) Baso % (Auto) Neut # (Auto) Lymph # (Auto) [place] # (Auto) Eos # (Auto) Baso # (Auto) Immature Gran # (Auto) Sodium 130 L Potassium 4.3 Chloride 99 Carbon Dioxide 21 Anion Gap 11.0 BUN 22 H Creatinine 1.11 D Est Cr Clr Drug Dosing 91.8 Est GFR ( Amer) 106.4 Est GFR (Non-Af Amer) 91.8 BUN/Creatinine Ratio 19.9 Glucose 157 H Lactate Calcium < 5.0 L* Phosphorus Magnesium Total Bilirubin 1.3 H Direct Bilirubin AST 167 H ALT 98 H Alkaline Phosphatase 136 H Lactate Dehydrogenase Total Protein 5.4 L D Albumin 2.1 L Globulin Albumin/Globulin Ratio Cholesterol 357 H Lipase Folate Beta-Hydroxybutyric Acd Specimen Hemolysis Urine Color [place] Urine Appearance Clear Urine pH 5.5 Ur Specific [place] 1.033 H Urine Protein 1+ H Urine Glucose (UA) Negative Urine Ketones Negative Urine Blood Negative Urine Nitrite Positive A Urine Bilirubin Negative Urine Urobilinogen Negative Ur Leukocyte Esterase Trace H Urine WBC (Auto) 1-5 Urine RBC (Auto) 0-4 U Hyaline Cast (Auto) 1-5 U Epithel Cells (Auto) 5-10 H Urine Bacteria (Auto) Negative Ethyl Alcohol mg/dL COVID-19 PCR NEGATIVE Diagnostic Findings ABDOMEN AND PELVIS CT WITHOUT CONTRAST CT DOSE: 329.52 mGy.cm HISTORY: Right lower quadrant pain. Nausea. Vomiting. TECHNIQUE: Multiaxial CT images of the abdomen and pelvis were performed without contrast. A dose lowering technique was utilized adhering to the principles of ALARA. COMPARISON STUDY: None. FINDINGS: The lung bases are clear. No pneumoperitoneum. No pneumatosis. No fractures within the visualized osseous structures. There are severe hepatic steatosis. The unenhanced spleen, gallbladder, adrenal glands, and kidneys are unremarkable. No renal or ureteral stones. No hydronephrosis. Normal bladder. Small to moderate left-sided hydrocele. No evidence for bowel obstruction. The majority of the pancreas is obscured by the extensive peripancreatic fluid/fat stranding there is fluid tracking within the bilateral anterior pararenal spaces, right greater than left. There is also fluid/fat stranding extending into the central mesentery and omentum. Therefore, these findings likely represent severe acute pancreatitis. Correlation with pancreatic enzymes is recommended. The appendix is not identified with certainty. No definite bowel wall thickening. Submucosal fat within the majority of the colon raise the possibility of a chronic inflammatory process. No evidence for an acute colitis at this time. No retroperitoneal lymphadenopathy. Normal caliber abdominal aorta. Omentum. IMPRESSION: 1. The majority of the pancreas is obscured by the extensive peripancreatic fluid/fat stranding. There is also fluid/fat stranding extending into the central mesentery and omentum. Therefore, these findings likely represent severe acute pancreatitis. Correlation with pancreatic enzymes is recommended. 2. Severe hepatic steatosis. 3. No definite bowel wall thickening or obstruction. 4. The appendix is not identified with certainty. 5. Small to moderate left-sided hydrocele. Code Status & VTE Plan VTE Prophylaxis Plan VTE Prophylaxis will be ordered: Yes (1) Acute pancreatitis Acute pancreatitis complication: unspecified Pancreatitis type: alcohol induced Qualified Code(s): K85.20 - Alcohol induced acute pancreatitis without necrosis or infection
[2020-01-19] MEDS ORDERED: ATROPINE SULFATE 0.1 MG/ML 10ML SYR IV PRN (10:12)
[2020-01-19] MEDS ORDERED: fentaNYL citrate 100 MCG/2 ML VIAL IV PRN (10:12)
[2020-01-19] MEDS ORDERED: ePHEDrine sulfate 50 MG/ML AMP IV PRN (10:12)
--- NOTE | 2020-01-19 10:13 | Anesthesiology Consultation ---
Date of Service January 19, 2020 Assessment & Plan (1) Encounter for pre-operative examination: Chart Review Chart Review: Acceptable Risk for Surgery Consults Requested none ASA ASA3 Proposed Anesthesia Anesthesia Type: MAC Risk / Benefits Reviewed With: PT / POA / Parent / Guardian, Accepts Plan and Informed Consent Obtained History Surgery Operation Date: 01/19/20 11:00 Proposed Procedures p Esophagogastroduodenoscopy Dr Keo Crowley Height/Weight Height: 5 ft 6 in Weight: 69.7 kg Allergies Allergy/AdvReac Type Severity Reaction Status Date / Time lorazepam AdvReac Unknown Agitated Verified 01/18/20 16:29 Medications Home Medications Medication Instructions Recorded Confirmed Last Taken ibuprofen 600 mg PO Q6H PRN 01/18/20 01/18/20 Unknown Active Medications Generic Name Dose Route Start Last Admin Trade Name Freq PRN Reason Stop Dose Admin Acetaminophen 650 mg 01/19/20 00:12 01/19/20 01:17 Tylenol PO 02/18/20 00:11 650 mg Q4H PRN Administration pain/fever Diazepam 2 mg 01/19/20 00:12 01/19/20 08:19 Valium IV 02/18/20 00:11 2 mg Q6H PRN Administration Agitation Lactated Ringer's 1,000 mls @ 250 mls/hr 01/19/20 00:12 01/19/20 08:23 Lr IV 01/19/20 16:11 250 mls/hr .Q4H SKYLER Administration Pantoprazole Sodium 40 mg/ 100 mls @ 20 mls/hr 01/19/20 00:30 01/19/20 06:27 Dextrose IV 02/18/20 00:29 8 mg/hr Q5H SKYLER 20 mls/hr Administration 8 MG/HR NPO Date Last Intake of Fluids: 01/19/20 Time Last Intake of Fluids: 08:30 Date Last Intake of Solids: 01/17/20 Time Last Intake of Solids: 19:00 Past Medical History Medical History (Updated 01/19/20 @ 10:34 by Damion Colorado DO) Alcohol dependence (Acute) Exercise / Class Metabolic Activity II 4-5 Yardwork/Stairs/Walk up hill Past Surgical History Surgical History (Updated 01/19/20 @ 10:30 by Damion Colorado DO) S/P endoscopy S/P wisdom tooth extraction Past Anesthesia History No Hx of Anesthesia Complications and No Family Hx of Anesthesia Complications History of PONV No Hx of PONV and No Hx of Motion Sickness Social History Smoking Status: Current every day smoker Hx Alcohol Use: Yes Alcohol type: beer and other alcohol intake frequency: 3 or more drinks per day Hx Substance Use: Yes (alcohol) Last Used Substance: Hours (ago) Physical Exam Vital Signs Last Vital Signs Temp 98.1 F 01/19/20 07:31 Pulse 124 H 01/19/20 07:31 Resp 20 01/19/20 07:31 BP 107/66 01/19/20 07:31 Pulse Ox 97 01/19/20 07:31 ENMT Mouth: no dentition abnormality Thyromental Distance: > or= 3.5 Finger Breadths Mallampati Class: II Neck normal visual inspection Respiratory normal respiratory effort Auscultation: lungs clear to auscultation bilaterally Cardiovascular Rate/Rhythm: regular rate and regular rhythm Testing Laboratory Results 01/19/20 00:50 01/19/20 02:55 Urine Color [place] 01/19/20 03:05 Urine Appearance Clear (Clear) 01/19/20 03:05 Urine pH 5.5 (4.5-7.5) 01/19/20 03:05 Ur Specific [place] 1.033 (1.000-1.030) H 01/19/20 03:05 Urine Protein 1+ (Negative) H 01/19/20 03:05 Urine Glucose (UA) Negative (Negative) 01/19/20 03:05 Urine Ketones Negative (Negative) 01/19/20 03:05 Urine Nitrite Positive (Negative) A 01/19/20 03:05 Ur Leukocyte Esterase Trace (Negative) H 01/19/20 03:05 Urine WBC (Auto) 1-5 /hpf (0-5) 01/19/20 03:05 Urine RBC (Auto) 0-4 /hpf (0-4) 01/19/20 03:05 U Hyaline Cast (Auto) 1-5 /lpf (0-5) 01/19/20 03:05 U Epithel Cells (Auto) 5-10 /lpf (0-5) H 01/19/20 03:05 Urine Bacteria (Auto) Negative (Negative) 01/19/20 03:05 Electrocardiogram Date: 01/18/20 Findings: + ST @ (119 bpm) Chest X-Ray Date: 01/18/20 Findings: + NAD
[2020-01-19] MEDS ORDERED: PROPOFOL IV EMULSION 10 MG/ML 20 ML VIAL IV ONE ×2 (10:30→10:49)
[2020-01-19] MEDS ORDERED: LIDOCAINE HCL 2% 2 ML VIAL/AMP(20MG/ML) INFIL ONE (10:30)
[2020-01-19] MEDS ORDERED: fentaNYL citrate 100 MCG/2 ML VIAL ONE (10:31)
[2020-01-19] MEDS ORDERED: MIDAZOLAM HCL 1 MG/ML 2ML VIAL ONE (10:31)
--- NOTE | 2020-01-19 10:47 | Electrocardiogram Report ---
Test Reason : Blood Pressure : / mmHG Vent. Rate : 119 BPM Atrial Rate : 119 BPM P-R Int : 116 ms QRS Dur : 088 ms QT Int : 352 ms P-R-T Axes : 047 066 050 degrees QTc Int : 495 ms Sinus tachycardia Otherwise normal ECG No previous ECGs available Confirmed by Ruiz Archuleta ([id number]) on 01/19/2020 10:46:57 AM Referred By: REFERRED SELF Confirmed By:Marquis Archuleta
--- NOTE | 2020-01-19 11:01 | Post Operative Brief Note ---
Immediate Post Op Note v1 Date of Surgery January 19, 2020 Pre & Post Diagnosis Operation Date: 01/19/20 11:00 Pre-Op Diagnosis: Hematemesis Post-Op Diagnosis: Esophagitis, hiatal hernia, duodenitis I identified the patient and participated in the time-out.: Yes Procedure Operation Date: 01/19/20 11:00 Actual Procedures p Esophagogastroduodenoscopy(Not Applicable) - Shilpa Crowley Surgeon Shilpa Crowley System Programmer none Estimated Blood Loss 0 Findings Consistent with Post-Op Diagnosis
--- NOTE | 2020-01-19 11:01 | GI REPORT ---
Patient Name: Sha Toscano Procedure Date: 01/19/2020 10:43 AM Date of : 1995 Admit Type: Inpatient Age: 24 Gender: Male Attending MD: Shilpa Crowley DO Procedure: Upper GI endoscopy Providers: Shilpa Crowley DO Referring MD: Michael Hardin Md Indications: Epigastric abdominal pain, Hematemesis Medicines: Monitored Anesthesia Care Complications: No immediate complications. Estimated blood loss: Minimal. Estimated Blood Loss: Estimated blood loss was minimal. Procedure: Pre-Anesthesia Assessment: - Prior to the procedure, a History and Physical was performed, and patient medications, allergies and sensitivities were reviewed. The patient's tolerance of previous anesthesia was reviewed. - The risks and benefits of the procedure and the sedation options and risks were discussed with the patient. All questions were answered and informed consent was obtained. - Patient identification and proposed procedure were verified prior to the procedure by the physician, the nurse and the centralized traffic control operator. The procedure was verified in the procedure room. - Pre-procedure physical examination revealed no contraindications to sedation. - ASA Grade Assessment: III - A patient with severe systemic disease. - After reviewing the risks and benefits, the patient was deemed in satisfactory condition to undergo the procedure in an ambulatory setting. - The anesthesia plan was to use monitored anesthesia care (MAC). - Immediately prior to administration of medications, the patient was re-assessed for adequacy to receive sedatives. - The heart rate, respiratory rate, oxygen saturations, blood pressure, adequacy of pulmonary ventilation, and response to care were monitored throughout the procedure. - The physical status of the patient was re-assessed after the procedure. After obtaining informed consent, the endoscope was passed under direct vision. Throughout the procedure, the patient's blood pressure, pulse, and oxygen saturations were monitored continuously. The Endoscope was introduced through the mouth, and advanced to the third part of duodenum. The upper GI endoscopy was accomplished without difficulty. The patient tolerated the procedure well. Findings: LA Grade D (one or more mucosal breaks involving at least 75% of esophageal circumference) esophagitis with no bleeding was found 25 to 38 cm from the incisors. A small hiatal hernia was found. The proximal extent of the gastric folds (end of tubular esophagus) was 38 cm from the incisors. The hiatal narrowing was 39 cm from the incisors. The entire examined stomach was normal. The duodenal bulb and third portion of the duodenum were normal. Localized moderate inflammation characterized by congestion (edema), erythema and granularity was found in the second portion of the duodenum. Impression: - Severe Reflux esophagitis. - Small hiatal hernia. - Normal stomach. - Normal duodenal bulb and third portion of the duodenum. - Duodenitis, likely related to underlying pancreatitis. - No specimens collected. Recommendation: - Return patient to [facility] for [facility] care. - Use Protonix (pantoprazole) 40 mg PO BID for 4 weeks then reduce to 40 mg 1 timed daily. - Repeat upper endoscopy in 4 months for surveillance. Shilpa Crowley D.O. Shilpa Crowley, DO 01/19/2020 11:00:30 AM This report has been signed electronically. Note Initiated On: 01/19/2020 10:43 AM Number of Addenda: 0 I attest to the content of the Intraoperative Record and orders documented therein, exceptions below {[id number]}
--- NOTE | 2020-01-19 11:20 | Anesthesiology Progress Note ---
Date of Service January 19, 2020 Anesthesia Post Procedure Vital Signs Vital Signs: Temp Pulse Pulse Resp BP BP Pulse Ox 01/19/20 11:15 97.0 F L 119 H 18 108/78 96 01/19/20 11:10 120 H 18 125/75 96 01/19/20 11:02 97.0 F L 120 H 18 122/73 98 01/19/20 10:28 97.7 F 128 H 22 140/88 96 01/19/20 07:31 98.1 F 124 H 20 107/66 97 01/19/20 07:21 104 H 01/19/20 03:25 98.6 F 110 H 18 125/87 96 01/19/20 00:19 99.0 F 124 H 24 123/73 96 01/19/20 00:06 124 H 01/18/20 22:23 126 H 19 127/89 97 01/18/20 21:08 112 H 19 98 01/18/20 19:25 117 H 19 126/66 100 01/18/20 18:35 122 H 19 131/78 01/18/20 18:30 115 H 21 01/18/20 18:00 124 H 31 H 135/82 01/18/20 17:38 116 H 18 147/78 H 100 01/18/20 17:30 118 H 24 01/18/20 17:00 112 H 29 H 126/89 99 01/18/20 16:45 109 H 28 H 97 01/18/20 16:44 115 H 26 H 138/83 100 01/18/20 16:43 115 H 24 01/18/20 14:13 98.2 F 96 H 17 120/64 97 01/18/20 13:34 118 H 27 H 142/45 H 100 Pain Intensity Abdomen: Pain Intensity: 3 Transfer of Care Handoff Completed per policy Notes Mental Status: alert / awake / arousable and participated in evaluation Patient Amnestic to Procedure: Yes Nausea / Vomiting: adequately controlled Pain: adequately controlled Airway Patency, RR, SpO2: stable & adequate BP & HR: stable & adequate Hydration State: stable & adequate Anesthetic Complications: no major complications apparent and Pt Satisfied with anesthetic care
[2020-01-19] MEDS: NICOTINE 21 MG/24 HR TDSY TD SCH (11:33)
[2020-01-19] MEDS: PANTOprazole 40 MG TAB PO SCH ×2 (12:21→20:17)
[2020-01-19 13:07] LABS: Hematocrit (blood only) 37.7 % (42-52); Hemoglobin 12.9 g/dL (14.0-18.0)
[2020-01-19] MEDS: HYDROmorphone INJ 1 MG/ML SYRINGE IV PRN ×2 (14:38→22:21)
--- NOTE | 2020-01-19 14:38 | Hospitalist Progress Note ---
Date of Service January 19, 2020 Assessment & Plan (1) Acute pancreatitis: CT a/p shows the majority of the pancreas involved with his pancreatitis. - Lipase was 9400 on admission. - Continue IV fluids -> LR at 250 mL/hr - NPO - Pain control - GI consulted (2) Hypocalcemia: Severe hypocalcemia which can be seen with pancreatitis (https://www.ncbi.nlm.nih.gov/pmc/articles/HEF2697443/). - Per UpToDate, replete as needed; however, other literature suggests being cautious with repletion. - Will recheck Ca & iCal now; replete gently. (3) Hematemesis: Reports multiple coffee ground emesis prior to admission. - S/p EGD on 01/[address] Crowley; edema and irritation in the duodenum may have been the cause - Continue PPI BID per GI (4) Transaminitis: Likely due to inflammation from pancreatitis and possibly a mild alcoholic hepatitis (AST:ALT ratio was <2:1, but close on admission). - Trend (5) Acute renal failure: Initial Cr was 2.5; now down to 1.1 after fluids. - Monitor (6) DVT prophylaxis: SCDs for now given EGD findings, but risk of VTE is likely high. Consideri ng risk:benefit daily. Admission and Anticipated Discharge Date Admission Date: January 18, 2020 Subjective In some pain this morning, but improved from presentation. Epigastric with radiation to the back. Reports no fevers/chills, chest pain, shortness of breath, nausea, or vomiting. Physical Exam Constitutional: WD/WN, vitals as above + acute distress Eyes: EOM intact bilaterally; no conjunctival abnormality ENMT: external ear and nose normal, oropharynx normal Neck: trachea midline, no thyromegaly normal visual inspection Respiratory: normal respiratory effort, lungs clear to auscultation no respiratory distress Cardiovascular: RRR, no murmur, no edema Gastrointestinal (Abdomen): Inspection/Auscultation: abdomen normal to inspection; abdomen not distended Percussion/Palpation: + abdomen tender (Epigastric) and abdomen soft; no guarding and abdomen not rigid Musculoskeletal: no cyanosis or clubbing, extremities motor strength 5/5 Skin: no rashes, warm and dry Neurologic: moves all extremities and awake Psychiatric: Orientation: alert, oriented to person and cooperative Results & Data Results & Data ([facility]) Vital Signs (Past 12 Hours) Vital Signs Temp Pulse Pulse Resp BP Pulse Ox 01/19/20 11:35 36.4 C L 126 H 18 126/73 96 01/19/20 11:15 36.1 C L 119 H 18 108/78 96 01/19/20 11:10 120 H 18 125/75 96 01/19/20 11:02 36.1 C L 120 H 18 122/73 98 01/19/20 10:28 36.5 C 128 H 22 140/88 96 01/19/20 07:31 36.7 C 124 H 20 107/66 97 01/19/20 07:21 104 H 01/19/20 03:25 37 C 110 H 18 125/87 96 PG Care Time/CCT Total # of Minutes Spent Total Time Spent with Patient: Total time spent is greater than 50% in coordination of care (as documented) at patient's floor/unit and/or counseling patient: Coding Level of Care Code 01707 Subseq Hosp Care Lvl 3 Diagnoses Acute pancreatitis K85.20 Acute pancreatitis complication: unspecified Pancreatitis type: alcohol induced Hypocalcemia E83.51 Hematemesis K92.0 Transaminitis R74.0 Acute renal failure N17.9 Acute renal failure type: unspecified DVT prophylaxis Z29.9 (1) Acute pancreatitis Acute pancreatitis complication: unspecified Pancreatitis type: alcohol induced Qualified Code(s): K85.20 - Alcohol induced acute pancreatitis without necrosis or infection (2) Acute renal failure Acute renal failure type: unspecified Qualified Code(s): N17.9 - Acute kidney failure, unspecified
[2020-01-19 15:30] LABS: Base Excess VBG 0.8 mEq/L; Oxygen Saturation VBG 73.2 %; pH VBG 7.45 (7.36-7.41)
[2020-01-19 15:50] LABS: Hematocrit (blood only) 36.7 % (42-52); Hemoglobin 12.6 g/dL (14.0-18.0); Mean Corpuscular Hemoglobin 32.9 pg (25-34); Mean Corpuscular Hgb Conc 34.3 g/dL (32-36); Mean Corpuscular Volume 95.8 fL (80-100); Platelet Count 106 K/uL (130-400); RDW Coefficient of Variation 13.5 % (11.5-14.5); Red Blood Count 3.83 M/uL (4.7-6.1); White Blood Count 12.47 K/uL (4.8-10.8)
[2020-01-19 16:24] LABS: Eosinophils # (auto) 0.01 K/uL (0-0.5); Eosinophils % (auto) 0.1 %; Immature Granulocytes # (auto) 0.19 K/uL (0.00-0.02); Immature Granulocytes % (auto) 1.5 %; Lymphocytes # (auto) 0.86 K/uL (1.2-3.4); Lymphocytes % (auto) 6.9 %; Monocytes # (auto) 0.56 K/uL (0.11-0.59); Monocytes % (auto) 4.5 %; Neutrophils # (auto) 10.85 K/uL (1.4-6.5); Toxic Vacuolation 1+
[2020-01-19 16:39] LABS: Albumin Globulin Ratio 0.6 (0.9-2); BUN Creatinine Ratio 16.1 (10-20); Bilirubin,Total 1.7 mg/dl (0.2-1); Calcium 5.6 mg/dl (8.5-10.1); Creatinine Clr Calc Pharmacy 127.4 ml/min; Est GFR (African American) 143.9; Est GFR (Non-African American) 124.2; Globulin 3.2 gm/dl (2.5-4.0); Total Protein 5.2 gm/dl (6.4-8.2)
[2020-01-19 17:10] LABS: Phosphorus 1.2 mg/dl (2.5-4.9)
[2020-01-19] MEDS ORDERED: CALCIUM GLUCONATE 10% 3,000 MG in 0.9 % SODIUM CHLORIDE 100 ML IV STA (17:11)
[2020-01-19] MEDS ORDERED: POTASSIUM PHOS 3 MMOL/1 ML INFUSION IV STA (17:11)
[2020-01-19 17:24] LABS: Magnesium 1.9 mg/dl (1.8-2.4); Potassium 4.1 mmol/L (3.5-5.1)
[2020-01-19] MEDS ORDERED: POTASSIUM PHOSPHATE 30 MMOL in SODIUM CHLORIDE 0.9% 500 ML IV ONE (17:30)
[2020-01-19] MEDS ORDERED: LORazepam 1 MG/2 ML VIAL IV PRN (17:38)
[2020-01-19] MEDS: diazePAM 2 MG TABLET PO PRN ×2 (18:33→20:58)
[2020-01-20] MEDS: LACTATED RINGER'S 1,000 ML IV SCH ×4 (01:11→14:35)
[2020-01-20] MEDS: HYDROmorphone INJ 1 MG/ML SYRINGE IV PRN ×3 (02:22→11:28)
[2020-01-20 06:37] LABS: Hematocrit (blood only) 33.8 % (42-52); Mean Corpuscular Hemoglobin 32.1 pg (25-34); Mean Corpuscular Hgb Conc 32.5 g/dL (32-36); Mean Corpuscular Volume 98.5 fL (80-100); Mean Platelet Volume 11.6 fL (7.4-10.4); Platelet Count 115 K/uL (130-400); RDW Coefficient of Variation 13.6 % (11.5-14.5); RDW Standard Deviation 48.7 fL (36.4-46.3); Red Blood Count 3.43 M/uL (4.7-6.1); White Blood Count 10.73 K/uL (4.8-10.8)
[2020-01-20 06:45] LABS: Prothrombin Time 10.6 Seconds (9.0-12.0)
[2020-01-20 07:28] LABS: Alanine Aminotransferase 71 U/L (12-78); Albumin Globulin Ratio 0.5 (0.9-2); Albumin Level 1.7 gm/dl (3.4-5.0); Alkaline Phosphatase 93 U/L (45-117); Aspartate Aminotransferase 134 U/L (15-37); BUN Creatinine Ratio 13.1 (10-20); Bilirubin,Total 2.3 mg/dl (0.2-1); Blood Urea Nitrogen 8 mg/dl (7-18); Calcium 6.2 mg/dl (8.5-10.1); Carbon Dioxide 25 mmol/L (21-32); Chloride 97 mmol/L (98-107); Creatinine Clr Calc Pharmacy 172.7 ml/min; Est GFR (African American) > 150.0; Est GFR (Non-African American) 140.7; Globulin 3.4 gm/dl (2.5-4.0); Glucose 87 mg/dl (70-99); Lipase 1484 U/L (73-393); Magnesium 1.8 mg/dl (1.8-2.4); Phosphorus 1.3 mg/dl (2.5-4.9); Potassium 4.2 mmol/L (3.5-5.1); Sodium 131 mmol/L (136-145); Total Protein 5.1 gm/dl (6.4-8.2)
[2020-01-20] MEDS ORDERED: SODIUM PHOSPHATE 3 MMOL/1 ML INFUSION IV STA (07:34)
[2020-01-20] MEDS ORDERED: CALCIUM GLUCONATE 10% 3,000 MG in SODIUM CHLORIDE 0.9% 50 ML IV ONE (08:00)
[2020-01-20] MEDS: PANTOprazole 40 MG TAB PO SCH (08:10)
[2020-01-20] MEDS: ACETAMINOPHEN 325 MG TAB PO PRN (08:10)
[2020-01-20] MEDS: NICOTINE 21 MG/24 HR TDSY TD SCH (08:11)
[2020-01-20] MEDS: diazePAM 2 MG TABLET PO PRN (08:17)
[2020-01-20] MEDS ORDERED: SODIUM PHOSPHATE 30 MMOL in SODIUM CHLORIDE 0.9% 500 ML IV ONE (08:30)
--- NOTE | 2020-01-20 08:33 | Gastroenterology Progress Note ---
Date of Service January 20, 2020 Assessment & Plan (1) Pancreatitis: Patient admitted with alcohol induced pancreatitis. He did have an upper endoscopy yesterday due to a question of coffee-ground or hematemesis prior to admission. This was notable for severe erosive esophagitis likely related to reflux and recurrent emesis. The patient peers to have improved significantly over the last 24 hours and states that he is pain-free although his labs are still abnormal. I would recommend continued IV hydration for 1 more day and replacement of electrolytes in particular his phosphorus as this appears to be very low. Recommendations Continue IV hydration May advance to a full liquid diet today Recommend replacement of phosphorus per general medicine service Continue twice daily Protonix for a total of 4 weeks then reduce to 1 time daily Repeat upper endoscopy in 3 months Patient should discontinue alcohol consumption If Patient doing well tomorrow perhaps he can be discharged tomorrow afternoon Admission and Anticipated Discharge Date Admission Date: January 18, 2020 Subjective The patient reports that he feels much improved today. He is expressing a desire to leave the hospital as soon as possible. Review of Systems Constitutional: no fever, no sweats, no malaise and no weight loss Eyes: no diplopia Respiratory: no cough, no change in sputum and no dyspnea Cardiovascular: no chest pain with activity and no dyspnea at rest Physical Exam Constitutional: WD/WN, vitals as above Neck: trachea midline, no thyromegaly Respiratory: normal respiratory effort; no respiratory distress Gastrointestinal (Abdomen): Inspection/Auscultation: abdomen not distended and no abdominal edema Percussion/Palpation: abdomen soft Results & Data ([facility]) Vital Signs (Past 12 Hours) Vital Signs Temp Pulse Pulse Resp BP Pulse Ox 01/20/20 07:39 38.2 C H 128 H 16 109/71 90 01/20/20 03:03 37.1 C 104 H 18 111/69 91 01/19/20 23:24 37.6 C H 119 H 18 113/71 97 01/19/20 22:20 117 H Laboratory Results Laboratory Results - last 24 hr 01/19/20 01/19/20 01/19/20 08:05 12:59 15:16 WBC RBC Hgb 12.9 L Cancelled Hct 37.7 L Cancelled MCV MCH MCHC RDW Std Deviation RDW Coeff of Paty Plt Count MPV Immature Gran % (Auto) Neut % (Auto) Lymph % (Auto) [place] % (Auto) Eos % (Auto) Baso % (Auto) Neut # (Auto) Lymph # (Auto) [place] # (Auto) Eos # (Auto) Baso # (Auto) Immature Gran # (Auto) Toxic Vacuolation PT INR VBG pH VBG pCO2 VBG pO2 VBG HCO3 VBG O2 Saturation VBG Base Excess Barometric Pressure Sodium Potassium Chloride Carbon Dioxide Anion Gap BUN Creatinine Est Cr Clr Drug Dosing Est GFR ( Amer) Est GFR (Non-Af Amer) BUN/Creatinine Ratio Glucose Calcium Ionized Calcium Phosphorus Magnesium Total Bilirubin AST ALT Alkaline Phosphatase Lactate Dehydrogenase Total Protein Albumin Globulin Albumin/Globulin Ratio Lipase Specimen Hemolysis COVID-19 PCR NEGATIVE 01/19/20 01/19/20 01/19/20 15:16 15:16 15:16 WBC 12.47 H D RBC 3.83 L Hgb 12.6 L Hct 36.7 L MCV 95.8 MCH 32.9 MCHC 34.3 RDW Std Deviation 47.0 H RDW Coeff of Paty 13.5 Plt Count 106 L MPV 11.0 H Immature Gran % (Auto) 1.5 Neut % (Auto) 87.0 Lymph % (Auto) 6.9 [place] % (Auto) 4.5 Eos % (Auto) 0.1 Baso % (Auto) 0.0 Neut # (Auto) 10.85 H Lymph # (Auto) 0.86 L [place] # (Auto) 0.56 Eos # (Auto) 0.01 Baso # (Auto) 0.00 Immature Gran # (Auto) 0.19 H Toxic Vacuolation 1+ PT INR VBG pH VBG pCO2 VBG pO2 VBG HCO3 VBG O2 Saturation VBG Base Excess Barometric Pressure Sodium 130 L Potassium Chloride 100 Carbon Dioxide 19 L Anion Gap 12.0 H BUN 13 Creatinine 0.80 D Est Cr Clr Drug Dosing 127.4 Est GFR ( Amer) 143.9 Est GFR (Non-Af Amer) 124.2 BUN/Creatinine Ratio 16.1 Glucose 115 H Calcium 5.6 L* Ionized Calcium Phosphorus 1.2 L* D Magnesium Total Bilirubin 1.7 H AST ALT 84 H Alkaline Phosphatase 121 H Lactate Dehydrogenase Total Protein 5.2 L Albumin 2.0 L Globulin 3.2 Albumin/Globulin Ratio 0.6 L Lipase 2563 H Specimen Hemolysis COVID-19 PCR 01/19/20 01/19/2020 15:16 15:16 16:53 WBC RBC Hgb Hct MCV MCH MCHC RDW Std Deviation RDW Coeff of Paty Plt Count MPV Immature Gran % (Auto) Neut % (Auto) Lymph % (Auto) [place] % (Auto) Eos % (Auto) Baso % (Auto) Neut # (Auto) Lymph # (Auto) [place] # (Auto) Eos # (Auto) Baso # (Auto) Immature Gran # (Auto) Toxic Vacuolation PT INR VBG pH 7.45 H VBG pCO2 36 L VBG pO2 39 VBG HCO3 24 VBG O2 Saturation 73.2 VBG Base Excess 0.8 Barometric Pressure 726.6 Sodium Potassium 4.1 Chloride Carbon Dioxide Anion Gap BUN Creatinine Est Cr Clr Drug Dosing Est GFR ( Amer) Est GFR (Non-Af Amer) BUN/Creatinine Ratio Glucose Calcium Ionized Calcium 0.71 L* Phosphorus Magnesium 1.9 Total Bilirubin AST 166 H ALT Alkaline Phosphatase Lactate Dehydrogenase Total Protein Albumin Globulin Albumin/Globulin Ratio Lipase Specimen Hemolysis COVID-19 PCR 01/19/20 01/20/20 01/20/20 16:53 06:14 06:14 WBC 10.73 RBC 3.43 L Hgb 11.0 L Hct 33.8 L MCV 98.5 MCH 32.1 MCHC 32.5 RDW Std Deviation 48.7 H RDW Coeff of Paty 13.6 Plt Count 115 L MPV 11.6 H Immature Gran % (Auto) Neut % (Auto) Lymph % (Auto) [place] % (Auto) Eos % (Auto) Baso % (Auto) Neut # (Auto) Lymph # (Auto) [place] # (Auto) Eos # (Auto) Baso # (Auto) Immature Gran # (Auto) Toxic Vacuolation PT 10.6 INR 1.0 VBG pH VBG pCO2 VBG pO2 VBG HCO3 VBG O2 Saturation VBG Base Excess Barometric Pressure Sodium Potassium Chloride Carbon Dioxide Anion Gap BUN Creatinine Est Cr Clr Drug Dosing Est GFR ( Amer) Est GFR (Non-Af Amer) BUN/Creatinine Ratio Glucose Calcium Ionized Calcium Phosphorus Magnesium Total Bilirubin AST ALT Alkaline Phosphatase Lactate Dehydrogenase 1022 H Total Protein Albumin Globulin Albumin/Globulin Ratio Lipase Specimen Hemolysis COVID-19 PCR 01/20/20 01/20/20 06:14 06:14 WBC RBC Hgb Hct MCV MCH MCHC RDW Std Deviation RDW Coeff of Paty Plt Count MPV Immature Gran % (Auto) Neut % (Auto) Lymph % (Auto) [place] % (Auto) Eos % (Auto) Baso % (Auto) Neut # (Auto) Lymph # (Auto) [place] # (Auto) Eos # (Auto) Baso # (Auto) Immature Gran # (Auto) Toxic Vacuolation PT INR VBG pH VBG pCO2 VBG pO2 VBG HCO3 VBG O2 Saturation VBG Base Excess Barometric Pressure Sodium 131 L Potassium 4.2 Chloride 97 L Carbon Dioxide 25 Anion Gap 8.0 BUN 8 D Creatinine 0.59 L Est Cr Clr Drug Dosing 172.7 Est GFR ( Amer) > 150.0 Est GFR (Non-Af Amer) 140.7 BUN/Creatinine Ratio 13.1 Glucose 87 Calcium 6.2 L Ionized Calcium 0.85 L Phosphorus 1.3 L* Magnesium 1.8 Total Bilirubin 2.3 H AST 134 H ALT 71 Alkaline Phosphatase 93 Lactate Dehydrogenase Total Protein 5.1 L Albumin 1.7 L Globulin 3.4 Albumin/Globulin Ratio 0.5 L Lipase 1484 H Specimen Hemolysis COVID-19 PCR
[2020-01-20] MEDS: AMPICILLIN/SULBACTAM SOD 3,000 MG in 0.9 % SODIUM CHLORIDE 100 ML IV SCH ×2 (09:17→14:37)
--- NOTE | 2020-01-20 16:44 | Discharge Summary ---
Date of Service January 20, 2020 Admission HPI Per Admitting Provider Consult requeted by Dr. Rosado The patient is a 24-year-old male who presented to the emergency room with evaluation of back pain. The symptoms have been ongoing for approximately 1 week after which he began to develop abdominal cramping and emesis. The patient reports having 10-11 emesis episodes over a 24-hour period. During the last emesis he had passage of some blood which was found in the toilet water. He d enies having any melena this morning no recurrence of emesis since admission. Unfortunately the patient is an alcoholic has been previously admitted to the hospital for problems related to substance abuse and withdrawal. He presently drinks least 15 drinks per week if not more of hard seltzer. Does report that he has periods where he will drink 6-8 drinks in 1 setting. The patient also reports that he has been using nonsteroidals as an outpatient up to 600 mg 3-4 times a day for back discomfort. This morning the patient notes that he does feel bloated. Principal Diagnosis Alcoholic pancreatitis Possible alcohol withdrawal Discharge Exam Constitutional WD/WN, vitals as above + acute distress Eyes EOM intact bilaterally; no conjunctival abnormality ENMT external ear and nose normal, oropharynx normal Neck trachea midline, no thyromegaly normal visual inspection Respiratory normal respiratory effort, lungs clear to auscultation no respiratory distress Cardiovascular RRR, no murmur, no edema Gastrointestinal (Abdomen) Inspection/Auscultation: abdomen normal to inspection; abdomen not distended Percussion/Palpation: + abdomen tender (Epigastric) and abdomen soft; no guarding and abdomen not rigid Musculoskeletal no cyanosis or clubbing, extremities motor strength 5/5 Skin no rashes, warm and dry Neurologic moves all extremities and awake Psychiatric Orientation: alert, oriented to person and cooperative Discharge Data Allergies Allergy/AdvReac Type Severity Reaction Status Date / Time lorazepam AdvReac Unknown Agitated Verified 01/18/20 16:29 Consultations 01/18/20 19:50 ED Decision to Admit Stat 01/19/20 00:12 Consult Gastroenterology Routine Procedures Performed Operation Date: 01/19/20 11:00 Actual Procedures p Esophagogastroduodenoscopy(Not Applicable) - Shilpa Crowley Ordered Studies 01/18/20 16:00 CT abd pelvis wo con Stat Hospital Course (1) Acute pancreatitis: CT a/p shows the majority of the pancreas involved with his pancreatitis. - Lipase was 9400 on admission, down to 1500 on discharge. - GI consulted - Had a fever overnight of 01/18-01/19 and another the morning of 01/19. Re- cultured, and Unasyn started. - On 01/19, the patient was able to eat full liquids and had less epigastric pain. Lipase had come down. Unfortunately, he reported increased back pain from the hospital bed and increased anxiety from being in the hospital. He requested to go. I explained this would have to be AMA as I felt he was not ready for discharge, and I now had concern for secondary infection of the pancreas. He spent some time thinking about it, but ultimately decided to go home today. I returned to the room and again asked him to stay in the hospital, explaining my concern for his pancreas, concern for infection, and concern for his heart rate which had been in the 130-150 range all day. I did give him a 15% chance of mortality from Mindy's score at 48h. He understood my concerns and the risks of departure and chose to leave. I did prescribe him antibiotics in hopes of preventing worsening infection if there is a secondary pancreatic infection. He will call the GI office tomorrow to schedule an appointment VIKASH. He was encouraged to return to the hospital with worsening pain, fevers, or any other concerning symptoms. I told him he was welcome at any time, and we would be happy to treat him if needed. (2) Tachycardia: HR was high the entire admission. Initially in the 100-110 range, felt to be due to anxiety, pain, acute illness. - On 01/19, he was higher still. Up to 130-150 even with minimal activity. No symptoms. EKG showed sinus tachycardia. - Concern for acute alcohol withdrawal. Patient was declining IV Ativan because he felt it made him combative/agitated prior admission; however, this was more likely from the withdrawal itself. Advise him that we could try different medication or increase dose of PO Valium, but he declined. [place] he would be less anxious out of the hospital. (3) Alcohol dependence: Per HPI, patient reported he drinks at least 15 drinks/wk, but also has settings where he drinks 6+ drinks in one sitting. - Did get low-dose Valium PO during admission. He declined IV Ativan due to previous agitation. On discharge, he had mild tremors and significant tachycardia which I was worried was related to alcohol withdrawal. (4) Hypocalcemia: Severe hypocalcemia which can be seen with pancreatitis (https://www.ncbi.nlm.nih.gov/pmc/articles/XLB2182269/). - Per UpToDate, replete as needed; however, other literature suggests being cautious with repletion. - Calcium was still low on discharge, but improving. He had some tremors on 01/18 which were improved on 01/19. (5) Hematemesis: Reports multiple coffee ground emesis prior to admission. - S/p EGD on 01/[address] Crowley; edema and irritation in the duodenum may have been the cause - Continue PPI BID per GI -> Prescription sent on discharge. (6) Transaminitis: Likely due to inflammation from pancreatitis and possibly a mild alcoholic hepatitis (AST:ALT ratio was <2:1, but close on admission). - Trending down on discharge. (7) Acute renal failure: Initial Cr was 2.5; now down to 1.1 after fluids. - Monitor (8) DVT prophylaxis: SCDs for now given EGD findings, but risk of VTE is likely high. Considering risk:benefit daily. Total Time Total Time Spent Total Time Spent (In Minutes): 35 Discharge Plan Discharge Items Patient Disposition: Against Medical Advice Reason For Visit: PANCREATITIS Discharge Diagnosis: Alcohol-induced pancreatitis Activity: Resume your previous activity Non-emergency contact: Primary Care Provider and Lead Business Systems Analyst Call non-emergency contact if: your symptoms worsen and your pain is worsening Follow-up/Referrals: PCP,NO [Primary Care Provider] - Diet: Low Fat Addtl Attending Provider Instructions: You were admitted with alcohol-induced pancreatitis. We treated you with bowel rest and IV fluids, as well as pain control. Your lab work indicates that your pancreas is healing and you are having less pain. However, you are still having some electrolyte issues, and your heart rate has still been quite high. Please eat a bland diet (low fat) for the next few days until your pancreas has more time to heal. Given you are having fevers still, we are worried about a secondary infection in the pancreas. We encouraged you to stay at least another night in the hospital; however, you feel you cannot stay in the hospital. Please take the antibiotics that we sent to the pharmacy and follow up with the GI doctors or your PCP next week. Pending Studies at Discharge: Yes Studies:: Blood cultures Stand-Alone Forms: My [facility], Smoking Cessation Medications and DC Order Prescriptions: New acetaminophen 325 mg Tablet 650 mg PO Q4H PRN (Reason: pain) Qty: 1 RF: 0 pantoprazole 40 mg Tablet,Delayed Release (Dr/Ec) 40 mg PO BID Qty: 60 RF: 0 nicotine [Nicoderm CQ] 21 mg/24 hr Patch 24 Hour 21 mg transdermal QAM Qty: 30 RF: 0 ondansetron 4 mg tablet,disintegrating 4 mg PO Q8H PRN (Reason: nausea and vomiting) 5 Days Qty: 20 RF: 0 amoxicillin-pot clavulanate [Augmentin] 875-125 mg tablet 1 tab PO BID Qty: 14 RF: 0 Discontinued ibuprofen 200 mg Capsule 600 mg PO Q6H PRN (Reason: Pain) RF: 0 Discharge Orders: Left Against Medical Advice (Routine); Ordered 01/20/20 Ordered By: Michael Garibay/Other Patient Handouts: Understanding Pancreatitis, Understanding Alcoholism, Alcoholism: Getting Help, Discharge Instructions for Acute Pancreatitis Admission Data Admit Date/Time: 01/18/20 22:22 Attending Provider: Michael Hardin Admit Provider: Juanito Lazar Primary Care Provider: PCP,NO Other Providers: Michael Hardin ; Megan Rosado ; Shelton Asif Other Interventions: Discharge Summary Assessment (RN) Last Done: 01/20/20 14:42 DC Date/Time DO NOT enter until pt leaves facility: 01/20/20 15:58 Coding Level of Care Code D/C Day Management >30 mins Diagnoses Acute pancreatitis K85.20 Acute pancreatitis complication: unspecified Pancreatitis type: alcohol induced Tachycardia R00.0 Alcohol dependence F10.29 Substance use status: unspecified alcohol-induced disorder Hypocalcemia E83.51 Hematemesis K92.0 Transaminitis R74.0 Acute renal failure N17.9 Acute renal failure type: unspecified DVT prophylaxis Z29.9
== END 2020-01-20 15:58 | disposition left against medical advice (07) | DRG 439 ==
LOC: ED 14:09 → SUATTDRO 22:22 → 2N 22:22